=== PATIENT | male | born 1975 | race Caucasian/White ===

== ENCOUNTER → 2023-01-25 06:57 | Outpatient (CLI) | payer OTHER, SELFPAY ==
--- NOTE | 2023-01-25 | DI.ECHO.S_ITS ---
[facility] +---------+ : : [id number] : : : : [id number] : : : : Phone: [phone]+ Echocardiogram Report + + :Name: LISSY GARCIA Study Date: 01/25/2023 Height: 71 in : :[facility] ReadingLocation: Weight: 300 lb : : Gender: Male BSA: 2.5 m2 : :: 1975 Age: 47 yrs BP: 145/98 mmHg: :Reason For Study: Fluid Overload : :Ordering Physician: Naima, : :Argelia Performed By: Marlee Lo : :Referring: ARGELIA CINTRON W : + + Interpretation Summary Technically difficult study. Grossly normal left ventricle size with ejection fraction 55-60%. Diastolic parameters suggest a relaxation abnormality of the left ventricle, consistent with probable normal filling pressures. Mildly dilated right ventricle with normal right ventricular systolic function. No obvious valvular abnormality. Procedure: A two-dimensional transthoracic echocardiogram with color flow and Doppler was performed. The study quality was technically difficult. There is no prior echocardiogram noted for this patient. Attempted to use Definity but the nurse was unable to obtain IV access. The patient was in normal sinus rhythm during the exam. Left Ventricle: The left ventricle is grossly normal size. The ejection fraction is estimated to be 55-60%. There are no obvious focal wall motion abnormalities noted but poor endocardial definition reduces the sensitivity for the detection of such. Diastolic parameters suggest a relaxation abnormality of the left ventricle, consistent with probable normal filling pressures. Right Ventricle: The right ventricle is mildly dilated. The right ventricular systolic function is normal. Atria: The left atrial size is normal. Right atrial size is normal. There is no Doppler evidence for an interatrial shunt. Mitral Valve: The mitral valve is normal. There is no mitral valve stenosis. There is trace mitral regurgitation. Aortic Valve: The aortic valve is trileaflet. The aortic valve opens well. There is no aortic valve stenosis. No aortic regurgitation is present. Tricuspid Valve: The tricuspid valve is normal. There is no tricuspid stenosis. There is trace tricuspid regurgitation. Pulmonary artery pressures cannot be estimated because of the lack of a measurable TR jet velocity. Pulmonic Valve: The pulmonic valve leaflets are thin and pliable; valve motion is normal. There is no pulmonic valvular stenosis. There is trace pulmonic regurgitation. Great Vessels: The aortic root is normal size. The ascending aorta is normal in size. The pulmonary artery is normal size. The IVC is dilated (diameter is greater than 2.1 cm) yet it collapses greater than 50% with a sniff. This suggests a right atrial pressure of 8 mm Hg. Pericardium/ Pleura There is no pericardial effusion. There is no pleural effusion. MMode/2D Measurements & Calculations LVIDd: 5.8 cm LVOT diam: 2.4 cm LVIDs: 4.7 cm Ao root diam: 3.6 cm FS: 19.0 % asc Aorta Diam: 3.5 cm IVSd: 1.2 cm LVPWd: 1.4 cm LV blanca. diameter/BSA (cm/m^2): 2.3 LV sys. diameter/BSA (cm/m^2): 1.9 LA A2 area: 20.3 cm2 RA long axis: 5.6 cm LA A4 area: 18.0 cm2 RA area: 19.6 cm2 LA length (vol): 5.8 cm RA vol: 58.4 ml LA vol: 53.5 ml RA : 23.3 ml/m2 LA vol index: 21.3 ml/m2 RVD1 (basal): 4.5 cm TAPSE_phl: 2.4 cm Doppler Measurements & Calculations Ao V2 max: 144.0 cm/sec LVOT Max Louie: 89.1 cm/sec Ao V2 mean: 100.6 cm/sec LV V1 max P.2 mmHg Ao max P.0 mmHg LV V1 VTI: 19.1 cm Ao mean P.5 mmHg BRODIE(I,D): 2.7 cm2 Ao V2 VTI: 32.4 cm BRODIE(V,D): 2.8 cm2 sev ratio: 0.59 BRODIE indexed to BSA (cm^2/m^2): 1.1 MV E max louie: 108.0 cm/sec PA V2 max: 86.7 cm/sec MV A max louie: 99.0 cm/sec PA V2 mean: 59.8 cm/sec MV E/A: 1.1 PA mean P.0 mmHg Med Peak E' Louie: 6.6 cm/sec PA pr(Accel): 23.2 mmHg E/E' med: 16.4 Lat Peak E' Louie: 6.5 cm/sec E/E' lat: 16.7 E/e' average: 16.5 MV dec time: 0.22 sec MVA(VTI): 2.5 cm2 MV V2 mean: 88.2 cm/sec SV(LVOT): 86.6 ml MV mean P.5 mmHg MV V2 VTI: 34.9 cm AV VR_phl: 0.62 MV P1/2t-pr_phl: 65.0 msec BRODIE(VTI)/BSA_phl: 1.1 Electronically signed by: Zach Mijares on Reading Physician:01/25/2023 03:04 PM
== END ==
PROVIDERS: PCP Family Medicine; Referring Provider Family Medicine; Visit Provider Family Medicine
DX: E87.70 Fluid overload, unspecified (principal)
CPT/HCPCS: 93306

== ENCOUNTER 2024-04-03 13:10 | Emergency (ER) | payer MEDICARE, SELFPAY ==
[2024-04-03 13:15] VITALS: BP 131/71; PULSE 82; O2SAT 96
[2024-04-03 13:18] VITALS: BP 131/71; PULSE 82; RESP 18; TEMP 36.2; O2SAT 95; BMI 47.8
[2024-04-03 13:30] VITALS: PULSE 75; O2SAT 95
--- NOTE | 2024-04-03 13:32 | ED.GENADULT ---
HPI - General Adult General Chief complaint: Weakness Stated complaint: weak, dizzy, muscle aches Time Seen by Provider: 04/03/24 13:17 Source: patient and family Mode of arrival: Wheelchair History of Present Illness HPI narrative: 40-year-old male. Has a insulin-dependent diabetic. Is on Ozempic for his diabetes is here for evaluation of a couple days of feeling weak, dizzy muscle aches and generally not feeling very well. He recently was off his Ozempic for several weeks because he was unable to afford the medication. He recently started back on the highest dose of this medication. He states when he was off he was in pick his blood sugars were in the 92280 range. They are now down into the less than 200 range. No chest pain, shortness of breath, abdominal pain. Related Data Home Medications Medication Instructions Recorded Confirmed atorvastatin 20 mg tablet 20 mg PO DAILY 01/21/24 01/21/24 cholecalciferol (vitamin D3) 1,250 1,250 mcg PO QWEEK 01/21/24 01/21/24 mcg (50,000 unit) capsule duloxetine 20 mg capsule,delayed 20 mg PO BID 01/21/24 01/21/24 release empagliflozin 25 mg tablet 25 mg PO DAILY 01/21/24 01/21/24 (Jardiance) gabapentin 800 mg tablet 800 mg PO TID 01/21/24 01/21/24 hydrocodone 10 mg-acetaminophen 1 tab PO Q8H PRN 01/21/24 01/21/24 325 mg tablet insulin glargine 100 unit/mL 30 unit SUBCUT BID 01/21/24 01/21/24 subcutaneous cartridge levothyroxine 25 mcg tablet 25 mcg PO DAILY 01/21/24 01/21/24 omeprazole 20 mg tablet,delayed 20 mg PO BID 01/21/24 01/21/24 release semaglutide 2 mg/dose (8 mg/3 mL) 2 mg SUBCUT QWEEK 01/21/24 01/21/24 subcutaneous pen injector (Ozempic) torsemide 100 mg tablet 100 mg PO DAILY 01/21/24 01/21/24 Allergies Allergy/AdvReac Type Severity Reaction Status Date / Time cefazolin Allergy Unknown Verified 01/21/24 10:49 Cephalosporins Allergy Unknown Verified 01/21/24 10:49 magnesium sulfate Allergy Unknown Verified 01/21/24 10:49 morphine Allergy Unknown Verified 01/21/24 10:49 nafcillin Allergy Unknown Verified 01/21/24 10:49 oxcarbazepine Allergy Unknown Verified 01/21/24 10:49 pregabalin [From Lyrica] Allergy Unknown Verified 01/21/24 10:49 rifampin Allergy Unknown Verified 01/21/24 10:49 yellow dye Allergy Unknown Verified 01/21/24 10:49 Review of Systems Review of Systems Narrative: See HPI Patient History Medical History Erectile dysfunction Tobacco use Nocturia more than twice per night Lower urinary tract symptoms Hx of chronic kidney disease Hx of peripheral neuropathy Hx of thyroid disease Hx of kidney disease Hx of gastroesophageal reflux (GERD) Hx of diabetes mellitus Hx of testicular cancer Surgical History (Updated 11/24/22 @ 13:06 by John Bryant MD) History of orchiectomy History of right below knee amputation Family History (Updated 11/02/22 @ 15:59 by Ruth Ovalle RN) Mother Diabetes mellitus Eczema Congestive heart failure Thyroid disorder COPD (chronic obstructive pulmonary disease) Father Diabetes mellitus Social History marital status: number of children: 1 occupational status: disabled Smoking Status: Current every day smoker alcohol intake: never caffeine: Yes Type(s) of exercise: none Smoking Status: Current every day smoker tobacco type: cigarettes Substance Use Type: does not use Exam Initial Vital Signs Initial Vital Signs: Vital Signs Temperature 97.1 F L 04/03/24 13:18 Pulse Rate 82 04/03/24 13:18 Respiratory Rate 18 04/03/24 13:18 Blood Pressure 131/71 04/03/24 13:18 Pulse Oximetry 95 04/03/24 13:18 Oxygen Delivery Method Room Air 04/03/24 13:18 Const General: cooperative and comfortable Resp Effort & Inspection: normal respiratory effort Auscultation: clear to auscultation bilaterally Cardio Rate: regular rate Rhythm: regular rhythm GI Inspection: normal to inspection and non-distended Skin Other: Chronic venous stasis changes left lower extremity Neuro General: patient alert, patient awake and moves all extremities Extrem Other: Right [id number] amputation Course Orders Ordered: ED Orders 04/03/24 13:27 Basic Metabolic Panel Stat Complete Blood Count AUTO DIFF Stat Covid-19 + FLU A/B + RSV - PCR Stat 04/03/24 15:02 Creatinine Urine Random Stat Sodium Urine Random Stat Urinalysis and Microscopic Stat 04/03/24 16:22 BMP [Basic Metabolic Panel] Stat Discontinued Medications Sodium Chloride (Normal Saline 0.9%) 1,000 mls @ 1,000 mls/hr IV BOLUS ONE Stop: 04/03/24 15:30 Last Infusion: 04/03/24 16:24 Dose: Infused Documented By: Admin: 04/03/24 15:08 Dose: 1,000 mls/hr Documented By: VANESSA Vital Signs Vital signs: Vital Signs - 8 hr 04/03/24 13:18 Temperature 97.1 F L Pulse Rate 82 Respiratory Rate 18 Blood Pressure 131/71 Pulse Oximetry 95 Oxygen Delivery Method Room Air Medical Decision Making Lab Data Lab results reviewed: Yes I reviewed the patient's lab results. 04/03/24 13:27 04/03/24 16:22 Labs: Lab Results 04/03/24 04/03/24 04/03/24 Range/Units 13:27 15:02 16:22 WBC 10.9 (4.5-11.0) X10^3/uL RBC 3.99 L (4.5-5.9) X10^6/uL Hgb 12.6 L (13.5-17.5) g/dL Hct 37.5 L (41-53) % MCV 93.9 (80-100) fL MCH 31.6 (26-34) PG MCHC 33.7 (30-36) % RDW 13.4 (11.6-14.8) % Plt Count 271 (150-400) X10^3/uL Neut % (Auto) 74.1 (50-75) % Lymph % (Auto) 13.3 L (25-40) % [place] % (Auto) 10.7 (3-14) % Eos % (Auto) 1.5 L (2-4) % Baso % (Auto) 0.4 (0-2) % Neut # (Auto) 8100 H (2118-1256) /uL Lymph # (Auto) 1400 (7345-8186) /uL [place] # (Auto) 1200 H (0-900) /uL Eos # (Auto) 200 (0-450) /uL Baso # (Auto) 0 (0-100) /uL Sodium 130 L 128 L (137-145) mmol/L Potassium 3.6 3.0 L (3.4-5.1) mmol/L Chloride 79 L 80 L (98-107) mmol/L Carbon Dioxide 36 H 37 H (22-32) mmol/L BUN 126 H* 121 H* (9-20) mg/dL Creatinine 3.01 H 2.82 H (0.66-1.25) mg/dL Estimated GFR 25 L 27 L (>60) mL/min BUN/Creatinine Ratio 41.9 H 42.6 H (6-22) Glucose 172 H 240 H (70-100) mg/dL Calcium 7.3 L 7.0 L (8.4-10.2) mg/dL Urine Color Yellow Urine Appearance Clear Urine pH 6.0 (4.5-8.0) Ur Specific [place] 1.010 (1.000-1.035) Urine Protein 2+ H (Negative) Urine Glucose (UA) 2+ H (Negative) g/dL Urine Ketones Negative (NEGATIVE) Urine Occult Blood Negative (Negative) Urine Nitrate Negative (Negative) Urine Bilirubin Negative (NEGATIVE) Urine Urobilinogen 0.2 (0.2) E.U./dL Ur Leukocyte Esterase Negative (NEGATIVE) Urine RBC 0-1/hpf (0-5/HPF) Urine WBC 0-1/hpf (0-5/HPF) Ur Squamous Epith Cells 0-1 /hpf (0-5/HPF) Urine Bacteria Occasional (0-1) (None) Ur Culture Indicated? Cult not indicated Vol Urine Centrifuged 10ml (spun) Ur Random Sodium 50 (30-90) mmol/L Urine Creatinine 43.93 mg/dL SARS-CoV-2 (PCR) Negative (Negative) Influenza A (RT-PCR) Flu a negative (NEGATIVE) Influenza B (RT-PCR) Flu b negative (NEGATIVE) RSV (PCR) Negative (Negative) MDM Narrative Medical decision making narrative: After fluids patient reports an improvement of his symptoms. He is tolerating oral intake. He initially had an increase in his creatinine with no prior. His FENA calculates out to an intrinsic process. He stated that several months ago his creatinine was 2.7. 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 After fluids his creatinine did improve. He was feeling better. Plan will be to discharge home. He will take a lower dose of his Ozempic and increase it like what he did when he 1st started the medication. He was given return precautions. He expressed understanding and agreement. I suspect that he does have a degree of dehydration as well as he has been urinating quite a bit most likely because his blood sugars have been elevated. Discharge Plan Departure Patient Disposition: Home Clinical Impression: Chronic kidney disease, Dehydration Instructions: DI for Dehydration -- Adult Activity Restrictions/Additional Instructions: Recommend that you continue to take all of your medications as directed. It is important that you contact your primary doctor for a follow-up. I would recommend decreasing your Ozempic for the next couple days and then increasing it back up to your current dose. You can contact your primary doctor for more information on this. Return to the emergency department for new symptoms. Prescriptions: No Action atorvastatin 20 mg tablet 20 mg PO DAILY gabapentin 800 mg tablet 800 mg PO TID Patient Comments: Pt takes 3600mg daily torsemide 100 mg tablet 100 mg PO DAILY Jardiance 25 mg tablet 25 mg PO DAILY Ozempic 2 mg/dose (8 mg/3 mL) pen injector 2 mg SUBCUT QWEEK cholecalciferol (vitamin D3) 1,250 mcg (50,000 unit) capsule 1,250 mcg PO QWEEK hydrocodone-acetaminophen 10-325 mg tablet 1 tab PO Q8H PRN duloxetine 20 mg capsule,delayed release(DR/EC) 20 mg PO BID levothyroxine 25 mcg tablet 25 mcg PO DAILY omeprazole 20 mg tablet,delayed release (DR/EC) 20 mg PO BID insulin glargine 100 unit/mL cartridge 30 unit SUBCUT BID Referrals: Augustin Mcnamara MD [Primary Care Provider] - Stand Alone Forms: Patient Portal/API
[2024-04-03 13:50] LABS: Add Manual Diff / Slide Review NO; Basophils Absolute Auto 0 /uL (0-100); Basophils Percent Auto 0.4 % (0-2); Eosinophils Absolute Auto 200 /uL (0-450); Eosinophils Percent Auto 1.5 % (2-4); Hematocrit 37.5 % (41-53); Hemoglobin 12.6 g/dL (13.5-17.5); Lymphocytes Absolute Auto 1400 /uL (1100-4500); Lymphocytes Percent Auto 13.3 % (25-40); Mean Corpuscular HGB Conc 33.7 % (30-36); Mean Corpuscular Hemoglobin 31.6 PG (26-34); Mean Corpuscular Volume 93.9 fL (80-100); Monocytes Absolute Auto 1200 /uL (0-900); Monocytes Percent Auto 10.7 % (3-14); Neutrophils Absolute Auto 8100 /uL (1500-7000); Neutrophils Percent Auto 74.1 % (50-75); Platelet Count 271 X10^3/uL (150-400); Red Blood Cell Count 3.99 X10^6/uL (4.5-5.9); Red Cell Distribution Width 13.4 % (11.6-14.8); White Blood Cell Count 10.9 X10^3/uL (4.5-11.0)
[2024-04-03 13:55] LABS: Calcium 7.3 mg/dL (8.4-10.2); Carbon Dioxide 36 mmol/L (22-32); Chloride 79 mmol/L (98-107); Estimated Glomerular Filt Rate 25 mL/min (>60); Glucose 172 mg/dL (70-100); HEMOLYSIS < 15 (0-50); Potassium 3.6 mmol/L (3.4-5.1); Sodium 130 mmol/L (137-145)
[2024-04-03 14:00] VITALS: PULSE 72; O2SAT 93
[2024-04-03 14:09] LABS: BUN Creatinine Ratio 41.9 (6-22)
[2024-04-03 14:10] LABS: Blood Urea Nitrogen 126 mg/dL (9-20)
[2024-04-03 14:15] LABS: COVID-19 CEPHEID 4-PLEX PCR Negative (Negative); Influenza A - CEPHEID Flu A NEGATIVE (NEGATIVE); Influenza B - CEPHEID Flu B NEGATIVE (NEGATIVE); Respiratory Syncytial Virus Negative (Negative)
[2024-04-03 14:30] VITALS: PULSE 72; O2SAT 91
[2024-04-03] MEDS: SODIUM CHLORIDE 0.9% 1,000 ML 1000 ML IV (15:08)
[2024-04-03 15:10] LABS: Appearance Urine UA CLEAR; Bilirubin Urine UA NEGATIVE (NEGATIVE); Color Urine UA YELLOW; Glucose Urine UA 2+ g/dL (Negative); Ketones Urine UA NEGATIVE (NEGATIVE); Leukocyte Esterase Urine UA NEGATIVE (NEGATIVE); Nitrite Urine UA NEGATIVE (Negative); Occult Blood Urine UA NEGATIVE (Negative); Protein Urine UA 2+ (Negative); Urobilinogen Urine UA 0.2 E.U./dL (0.2)
[2024-04-03 15:16] LABS: Bacteria Urine Occasional (0-1); Culture Indicated Urine Cult Not Indicated; RBC Urine 0-1/HPF (0-5/HPF); Squamous Epithelial Cell Urine 0-1 /HPF (0-5/HPF); Urine Volume 10mL (spun); WBC Urine 0-1/HPF (0-5/HPF)
[2024-04-03 15:35] LABS: Creatinine Urine Random 43.93 mg/dL; Sodium Urine Random 50 mmol/L (30-90)
[2024-04-03 16:38] LABS: Carbon Dioxide 37 mmol/L (22-32); Chloride 80 mmol/L (98-107); Estimated Glomerular Filt Rate 27 mL/min (>60); Glucose 240 mg/dL (70-100); HEMOLYSIS < 15 (0-50); Sodium 128 mmol/L (137-145)
[2024-04-03 16:39] LABS: BUN Creatinine Ratio 42.6 (6-22)
[2024-04-03 16:52] LABS: Blood Urea Nitrogen 121 mg/dL (9-20)
[2024-04-03 17:14] VITALS: BP 159/96; PULSE 72; RESP 16; O2SAT 94
== END 2024-04-03 17:19 | disposition home or self-care (01) ==
PROVIDERS: Emergency Provider Emergency Medicine; PCP Family Medicine
DX: E11.22 Type 2 diabetes mellitus with diabetic chronic kidney disease (principal); N18.9 Chronic kidney disease, unspecified; E86.0 Dehydration; Z79.85 Long-term (current) use of injectable non-insulin antidiabetic drugs; Z79.4 Long term (current) use of insulin
CPT/HCPCS: 0241U; 36415; 80048; 81001; 82570; 84300; 85025; 96360; 99284

== ENCOUNTER → 2024-05-22 07:59 | Outpatient (CLI) | payer MEDICARE, SELFPAY ==
--- NOTE | 2024-05-22 08:00 | DI.RAD.S_ITS ---
PROCEDURE: XR CHEST 2V INDICATIONS: Cough TECHNIQUE: 2 views of the chest were acquired. COMPARISON: None. FINDINGS: Surgical changes and devices: None. Lungs and pleura: Lungs are clear. No pleural effusions or pneumothorax. Mediastinum: Mediastinal contours are normal. Heart size is normal. Bones and chest wall: No suspicious bony abnormalities. Soft tissues appear unremarkable. IMPRESSION: No acute cardiothoracic process. Dictated by: Mohamud Hamm M.D. on 05/22/2024 at 13:08 Approved by: Mohamud Hamm M.D. on 05/22/2024 at 13:08
== END ==
PROVIDERS: PCP Family Medicine; Referring Provider Nurse Practitioner Family; Visit Provider Nurse Practitioner Family
DX: R05.9 Cough, unspecified (principal)
CPT/HCPCS: 71046

== ENCOUNTER 2024-05-23 14:02 | Emergency (ER) | payer MEDICARE, SELFPAY ==
[2024-05-23] VITALS (14 sets, daily range): BP systolic 102–161; BP diastolic 64–87; PULSE 79–86; RESP 16–21; TEMP 37.2; O2SAT 90–98; BMI 44.4
--- NOTE | 2024-05-23 14:29 | DI.RAD.S_ITS ---
PROCEDURE: XR CHEST 1V INDICATIONS: Shortness of breath TECHNIQUE: One view of the chest was acquired. COMPARISON: [facility], CR, XR CHEST 2V, 05/22/2024, 8:02. FINDINGS: Surgical changes and devices: None. Lungs and pleura: Lungs are clear. No pleural effusions or pneumothorax. Mediastinum: Mediastinal contours appear normal. Heart size is normal. Bones and chest wall: No suspicious bony lesions. Overlying soft tissues appear unremarkable. IMPRESSION: No acute cardiopulmonary pathology. Dictated by: Errol Quiles M.D. on 05/23/2024 at 15:28 Approved by: Errol Quiles M.D. on 05/23/2024 at 15:28
[2024-05-23 14:48] LABS: Add Manual Diff / Slide Review NO; Basophils Absolute Auto 100 /uL (0-100); Basophils Percent Auto 0.7 % (0-2); Eosinophils Absolute Auto 200 /uL (0-450); Eosinophils Percent Auto 2.2 % (2-4); Hematocrit 35.3 % (41-53); Hemoglobin 11.8 g/dL (13.5-17.5); Lymphocytes Absolute Auto 900 /uL (1100-4500); Lymphocytes Percent Auto 8.6 % (25-40); Mean Corpuscular HGB Conc 33.6 % (30-36); Mean Corpuscular Hemoglobin 30.6 PG (26-34); Mean Corpuscular Volume 91.1 fL (80-100); Monocytes Absolute Auto 700 /uL (0-900); Monocytes Percent Auto 7.4 % (3-14); Neutrophils Absolute Auto 8100 /uL (1500-7000); Neutrophils Percent Auto 81.1 % (50-75); Platelet Count 298 X10^3/uL (150-400); Red Blood Cell Count 3.88 X10^6/uL (4.5-5.9); Red Cell Distribution Width 13.8 % (11.6-14.8)
--- NOTE | 2024-05-23 14:50 | EKG_ITS ---
[address] [address] Test Date: 2024-05-23 Pat Name: Lucas Alejandro Department: [facility] Room: Gender: Male [employer]ap Project Manager: ROMERO : 1975 Requested By: Order Number: [id number] Reading MD: Jarocho Wall Measurements Intervals [place] Rate: 83 P: 50 MO: 168 QRS: -16 QRSD: 152 T: 63 QT: 452 QTc: 531 Interpretive Statements Normal sinus rhythm with sinus arrhythmia Right bundle branch block Electronically Signed On 05-24-2024 11:24:31 PDT by Jarocho Wall
[2024-05-23 15:02] LABS: Alanine Aminotransferase 22 IU/L (<50); Albumin 3.9 g/dL (3.5-5.0); Albumin Globulin Ratio 1.1 (1.0-2.8); Alkaline Phosphatase 49 U/L (38-126); Aspartate Aminotransferase 47 IU/L (17-59); BUN Creatinine Ratio 36.4 (6-22); Bilirubin Total 0.7 mg/dL (0.2-1.3); Blood Urea Nitrogen 96 mg/dL (9-20); Calcium 7.3 mg/dL (8.4-10.2); Carbon Dioxide 29 mmol/L (22-32); Chloride 90 mmol/L (98-107); Estimated Glomerular Filt Rate 29 mL/min (>60); Globulin 3.7 g/dL (1.7-4.1); Glucose 196 mg/dL (70-100); Sodium 131 mmol/L (137-145); Total Protein 7.6 g/dL (6.3-8.2)
[2024-05-23 15:03] LABS: Lactate (Lactic Acid) 1.8 mmol/L (0.7-2.1)
[2024-05-23 15:04] LABS: HEMOLYSIS 134 (0-50)
[2024-05-23] MEDS: ALBUTEROL 2.5 MG/3 ML NEB (ADULT) INH (15:09)
[2024-05-23 15:13] LABS: INR 1.1 (0.9-1.3); NT-proBNP (BNP-Adult 18+) 1770 pg/mL (<125); Prothrombin Time 12.3 SECONDS (9.4-12.5); Troponin I 0.031 ng/mL (0.01-0.034)
--- NOTE | 2024-05-23 15:49 | ED.SOB ---
HPI - SOB/Dyspnea General Chief Complaint: Shortness of Breath/Dyspnea Stated Complaint: trouble breathing Time Seen by Provider: 05/23/24 15:37 Source: patient, family, RN notes reviewed and old records reviewed Mode of arrival: Family Vehicle Limitations: no limitations History of Present Illness HPI Narrative: 48-year-old male history of insulin-dependent diabetes, also on Ozempic, history of chronic kidney disease, hypothyroidism, dyslipidemia, LORNA although nonadherent with CPAP. Patient presents with complaint of 3 weeks of cough and shortness of breath with yellow productive sputum for past 3 days has significantly worsened with increasing shortness of breath. Denies any chest pain or pressure. Had some nausea and vomiting week ago but no persistent. No issues with bowel movements or urination, has chronic edema in his lower extremities but no rapid worsening. Notes some redness and rash around his umbilicus but not significantly worsening and has been there for weeks to months. Denies any fevers or chills. Patient states symptoms have rapidly worse in the last 2 or 3 days. Did go to walk-in clinic yesterday had a chest x-ray. Related Data Home Medications Medication Instructions Recorded Confirmed atorvastatin 20 mg tablet 20 mg PO DAILY 01/21/24 05/22/24 cholecalciferol (vitamin D3) 1,250 1,250 mcg PO QWEEK 01/21/24 05/22/24 mcg (50,000 unit) capsule duloxetine 20 mg capsule,delayed 20 mg PO BID 01/21/24 05/22/24 release hydrocodone 10 mg-acetaminophen 1 tab PO Q8H PRN 01/21/24 05/22/24 325 mg tablet insulin glargine 100 unit/mL 30 unit SUBCUT BID 01/21/24 05/22/24 subcutaneous cartridge levothyroxine 25 mcg tablet 25 mcg PO DAILY 01/21/24 05/22/24 omeprazole 20 mg tablet,delayed 20 mg PO BID 01/21/24 05/22/24 release semaglutide 2 mg/dose (8 mg/3 mL) 2 mg SUBCUT QWEEK 01/21/24 05/22/24 subcutaneous pen injector (Ozempic) torsemide 100 mg tablet 100 mg PO DAILY 01/21/24 05/22/24 gabapentin 800 mg tablet 600 mg PO TID 05/22/24 05/22/24 Previous Rx's Medication Instructions Recorded benzonatate 200 mg capsule 200 mg PO BID PRN cough #28 caps 05/22/24 torsemide 20 mg tablet 20 mg PO DAILY #5 tabs 05/23/24 Allergies Allergy/AdvReac Type Severity Reaction Status Date / Time cefazolin Allergy Unknown Verified 05/22/24 07:33 Cephalosporins Allergy Unknown Verified 05/22/24 07:33 magnesium sulfate Allergy Unknown Verified 05/22/24 07:33 morphine Allergy Unknown Verified 05/22/24 07:33 nafcillin Allergy Unknown Verified 05/22/24 07:33 oxcarbazepine Allergy Unknown Verified 05/22/24 07:33 pregabalin [From Lyrica] Allergy Unknown Verified 05/22/24 07:33 rifampin Allergy Unknown Verified 05/22/24 07:33 yellow dye Allergy Unknown Verified 05/22/24 07:33 Review of Systems Review of Systems ROS Unobtainable: All systems reviewed & are unremarkable except as noted in HPI and below Patient History Medical History Erectile dysfunction Tobacco use Nocturia more than twice per night Lower urinary tract symptoms Hx of chronic kidney disease Hx of peripheral neuropathy Hx of thyroid disease Hx of kidney disease Hx of gastroesophageal reflux (GERD) Hx of diabetes mellitus Hx of testicular cancer Surgical History History of orchiectomy History of right below knee amputation Family History Mother Diabetes mellitus Eczema Congestive heart failure Thyroid disorder COPD (chronic obstructive pulmonary disease) Father Diabetes mellitus Social History marital status: number of children: 1 occupational status: disabled Smoking Status: Current every day smoker alcohol intake: never caffeine: Yes Type(s) of exercise: none Smoking Status: Current every day smoker tobacco type: cigarettes Substance Use Type: does not use Exam Narrative Exam Narrative: GEN: Obese male, alert and oriented x 3, patient appears to be in mild distress. HEENT: Atraumatic, pupils are equal round reactive to light, extraocular movements are intact, nares are clear, there is no conjunctival pallor. Throat is clear without any exudates, erythema, tonsillar enlargement or uvular deviation HEART: Regular rate and rhythm without murmur, clicks, rubs. Patient has bilateral lower extremity edema, patient does have chronic venous stasis changes with hyperpigmentation hyperkeratotic skin. LUNGS:Lungs clear to auscultation, no wheezes, rales, crackles, chest moves symmetrically, tachypnea accessory muscle use. Patient's speaks in full sentences. ABD:bowel sounds normal, soft, non-tender, no guarding, rebound, rigidity, no masses noted, no hepatosplenomegaly, patient has some erythema and hyperkeratotic skin around and just below the umbilicus. There is no warmth. There is no drainage or fluid collection. The area is nontender to touch. :No CVA tenderness MSCL: Non-tender, no muscle atrophy, full range of motion. Patient does have right BKA. NEURO:CN 2-12 intact, sensation normal. Initial Vital Signs Initial Vital Signs: Vital Signs Temperature 98.9 F 05/23/24 14:23 Pulse Rate 80 05/23/24 14:23 Respiratory Rate 20 05/23/24 14:23 Blood Pressure 122/87 05/23/24 14:23 Pulse Oximetry 94 05/23/24 14:23 Oxygen Delivery Method Room Air 05/23/24 14:23 Course Orders Ordered: ED Orders 05/23/24 14:29 XR chest 1V Stat EKG-12 Lead Stat Measure peak expiratory flow ONCE RT Consult Eval and Treat NOW 05/23/24 14:42 Complete Blood Count AUTO DIFF Stat Comprehensive Metabolic Panel Stat Lactate (Lactic Acid) Stat NT-proBNP (BNP-Adult 18+) Stat Prothrombin Time INR Stat Troponin I Stat 05/23/24 15:48 Respiratory Panel (Film Array) Stat Discontinued Medications Albuterol (Albuterol 2.5 Mg/3 Ml Neb (Adult)) 2.5 mg INH NOW ONE Stop: 05/23/24 15:07 Last Admin: 05/23/24 15:09 Dose: 2.5 mg Documented By: KATHLEEN Furosemide 80 mg/ Sodium (Chloride) 58 mls @ 116 mls/hr IV NOW ONE Stop: 05/23/24 15:50 Last Infusion: 05/23/24 16:51 Dose: Infused Documented By: Admin: 05/23/24 16:05 Dose: 116 mls/hr Documented By: JARRETT Vital Signs Vital signs: Vital Signs - 8 hr 05/23/24 14:23 05/23/24 14:33 05/23/24 14:45 Temperature 98.9 F Pulse Rate 80 85 86 Respiratory Rate 20 Blood Pressure 122/87 Pulse Oximetry 94 90 L 91 Oxygen Delivery Method Room Air Oxygen Flow Rate 05/23/24 14:45 05/23/24 14:52 05/23/24 14:52 Temperature Pulse Rate 81 Respiratory Rate Blood Pressure 121/66 122/70 Pulse Oximetry 91 Oxygen Delivery Method Oxygen Flow Rate 05/23/24 15:00 05/23/24 15:00 05/23/24 15:11 Temperature Pulse Rate 80 Respiratory Rate 21 Blood Pressure 102/64 Pulse Oximetry 94 91 Oxygen Delivery Method Nasal Cannula Room Air Oxygen Flow Rate 2 05/23/24 15:30 05/23/24 15:30 05/23/24 16:00 Temperature Pulse Rate 80 Respiratory Rate 16 Blood Pressure 140/77 136/83 Pulse Oximetry 94 Oxygen Delivery Method Oxygen Flow Rate 05/23/24 16:00 05/23/24 16:30 05/23/24 16:31 Temperature Pulse Rate 80 86 83 Respiratory Rate 19 19 19 Blood Pressure Pulse Oximetry 96 96 97 Oxygen Delivery Method Oxygen Flow Rate 05/23/24 16:31 05/23/24 16:44 05/23/24 16:44 Temperature Pulse Rate 84 Respiratory Rate Blood Pressure 115/70 122/76 Pulse Oximetry 98 Oxygen Delivery Method Oxygen Flow Rate 05/23/24 17:00 05/23/24 17:00 05/23/24 17:30 Temperature Pulse Rate 79 79 Respiratory Rate 18 18 Blood Pressure 119/71 Pulse Oximetry 91 96 Oxygen Delivery Method Oxygen Flow Rate 05/23/24 17:30 05/23/24 18:07 Temperature Pulse Rate 81 Respiratory Rate Blood Pressure 161/81 H Pulse Oximetry Oxygen Delivery Method Oxygen Flow Rate MDM - SOB/Dyspnea Lab Data 05/23/24 14:42 05/23/24 14:42 Labs: Lab Results 05/23/24 05/23/24 Range/Units 14:42 15:48 WBC 10.0 (4.5-11.0) X10^3/uL RBC 3.88 L (4.5-5.9) X10^6/uL Hgb 11.8 L (13.5-17.5) g/dL Hct 35.3 L (41-53) % MCV 91.1 (80-100) fL MCH 30.6 (26-34) PG MCHC 33.6 (30-36) % RDW 13.8 (11.6-14.8) % Plt Count 298 (150-400) X10^3/uL Neut % (Auto) 81.1 H (50-75) % Lymph % (Auto) 8.6 L (25-40) % [place] % (Auto) 7.4 (3-14) % Eos % (Auto) 2.2 (2-4) % Baso % (Auto) 0.7 (0-2) % Neut # (Auto) 8100 H (8443-9338) /uL Lymph # (Auto) 900 L (6901-1692) /uL [place] # (Auto) 700 (0-900) /uL Eos # (Auto) 200 (0-450) /uL Baso # (Auto) 100 (0-100) /uL PT 12.3 (9.4-12.5) SECONDS INR 1.1 (0.9-1.3) Sodium 131 L (137-145) mmol/L Potassium 4.0 (3.4-5.1) mmol/L Chloride 90 L (98-107) mmol/L Carbon Dioxide 29 (22-32) mmol/L BUN 96 H (9-20) mg/dL Creatinine 2.64 H (0.66-1.25) mg/dL Estimated GFR 29 L (>60) mL/min BUN/Creatinine Ratio 36.4 H (6-22) Glucose 196 H (70-100) mg/dL Lactate 1.8 (0.7-2.1) mmol/L Calcium 7.3 L (8.4-10.2) mg/dL Total Bilirubin 0.7 (0.2-1.3) mg/dL AST 47 (17-59) IU/L ALT 22 (<50) IU/L Alkaline Phosphatase 49 (38-126) U/L Troponin I 0.031 (0.01-0.034) ng/mL NT-Pro-B Natriuret Pep 1770 H (<125) pg/mL Total Protein 7.6 (6.3-8.2) g/dL Albumin 3.9 (3.5-5.0) g/dL Globulin 3.7 (1.7-4.1) g/dL Albumin/Globulin Ratio 1.1 (1.0-2.8) Chlamy pneumoniae PCR Not detected (Not Detect) Adenovirus (PCR) Not detected (Not Detect) B. pertussis DNA (PCR) Not detected (Not Detect) B.parapertussis DNA PCR Not detected (Not Detecte) Coronavirus OC43 (PCR) Not detected (Not Detect) Coronavirus HKU1 (PCR) Not detected (Not Detect) Coronavirus 229E (PCR) Not detected (Not Detect) SARS-CoV-2 (PCR) Not detected (Not Detecte) Coronavirus NL63 (PCR) Not detected (Not Detect) Human Metapneumovir PCR Not detected (Not Detect) Influenza Type A (PCR) Not detected (Not Detect) Influenza Type B (PCR) Not detected (Not Detect) M. pneumoniae (PCR) Not detected (Not Detect) Parainfluenza 1 (PCR) Not detected (Not Detect) Parainfluenza 2 (PCR) Not detected (Not Detect) Parainfluenza 3 (PCR) Not detected (Not Detect) Parainfluenza 4 (PCR) Not detected (Not Detect) RSV (PCR) Not detected (Not Detect) Entero/Rhino (PCR) Not detected (Not Detect) Imaging Data Chest x-ray: Radiologist's Impression: tanner, rifampin, yellow dye (More??) Close Chest X-Ray (Signed) Errol Quiles - 05/23/24 Chest X-Ray (Signed) Mohamud Hamm - 05/22/24 Echocardiogram Ultrasound (Signed) Zach Graf - 01/25/23 Launch?Image [address] [address] XRay Report Signed Patient: Lucas Alejandro MR#: [id number] : 1975 Acct:[id number] Age/Sex: 48 / M Date of Service: 05/23/24 Loc: ED Accession Number: [id number] Procedure: XR chest 1V Ordering Provider: Evelina Campbell D.O. PROCEDURE: XR CHEST 1V INDICATIONS: Shortness of breath TECHNIQUE: One view of the chest was acquired. COMPARISON: [facility], [place], XR CHEST 2V, 05/22/2024, 8:02. FINDINGS: Surgical changes and devices: None. Lungs and pleura: Lungs are clear. No pleural effusions or pneumothorax. Mediastinum: Mediastinal contours appear normal. Heart size is normal. Bones and chest wall: No suspicious bony lesions. Overlying soft tissues appear unremarkable. IMPRESSION: No acute cardiopulmonary pathology. Dictated by: Errol Quiles M.D. on 05/23/2024 at 15:28 Approved by: Errol Quiles M.D. on 05/23/2024 at 15:28 ECG Data Attestation: I personally reviewed and interpreted this ECG as follows: Interpretation: Sinus rhythm with sinus arrhythmia rate 83 NH 168 QRS of 152 QTC of 531, no acute ST elevation or depression noted. Patient has a right bundle-branch block. MDM Narrative Medical decision making narrative: Labs show a hemoglobin of 11.8 patient's prior was 12.6 in March, patient has a white count of 10, platelets of 298. Sodium is 131 potassium is 4 chloride 90 CO2 is 29 with a BUN 96 creatinine 2.64 improved from priors in March, glucose is 196, calcium 7.3, troponins 0.031 with a BNP of 1770. Chest x-ray shows no acute change EKG shows sinus rhythm with sinus arrhythmia right bundle-branch block. No priors for comparison. Respiratory panel is negative Patient received albuterol 2.5 mg with minimal improvement. After labs and further evaluation received Lasix patient had urine output and feels improved. When patient falls asleep his O2 sat drops but he has known sleep apnea states he does not use his machine but his hypoxia is only when he is asleep. On room air while awake he is 96%. He states he feels improved with his breathing here in the department. Discussed findings from today patient's family feel comfortable this plan state he has had a lot of ups and Downs with his torsemide we will increase his dose with plan for short term follow up and recheck of his renal function in the next week. They state they follow up with Nephrology but primary care is also been pretty amenable to helping monitor his labs. Discussed return precautions all questions answered. Discharge Plan Departure Patient Disposition: Home Clinical Impression: Acute exacerbation of CHF (congestive heart failure) Instructions: DI for Heart Failure Activity Restrictions/Additional Instructions: Please follow-up with your physician and Nephrology team. You appear to have some fluid overload today, please increase your torsemide for the next several days and then return to your usual dose of 100 mg daily. Prescription was sent to [email or web address] in [place]. Take your next dose tomorrow. Please return for new or worsening chest pain, shortness of breath, lightheadedness or passing out, persistent vomiting, increasing swelling in your extremities or other new or concerning changes. Prescriptions: New torsemide 20 mg tablet 20 mg PO DAILY Qty: 5 0RF No Action benzonatate 200 mg capsule 200 mg PO BID PRN (Reason: cough) Qty: 28 0RF atorvastatin 20 mg tablet 20 mg PO DAILY torsemide 100 mg tablet 100 mg PO DAILY Ozempic 2 mg/dose (8 mg/3 mL) pen injector 2 mg SUBCUT QWEEK cholecalciferol (vitamin D3) 1,250 mcg (50,000 unit) capsule 1,250 mcg PO QWEEK hydrocodone-acetaminophen 10-325 mg tablet 1 tab PO Q8H PRN duloxetine 20 mg capsule,delayed release(DR/EC) 20 mg PO BID levothyroxine 25 mcg tablet 25 mcg PO DAILY omeprazole 20 mg tablet,delayed release (DR/EC) 20 mg PO BID insulin glargine 100 unit/mL cartridge 30 unit SUBCUT BID gabapentin 800 mg tablet 600 mg PO TID Patient Comments: Pt takes 3600mg daily Referrals: Augustin Mcnamara MD [Primary Care Provider] - Stand Alone Forms: Patient Portal/API/Survey
[2024-05-23] MEDS: FUROSEMIDE 80 MG in SODIUM CHLORIDE 0.9% 50 ML 116 MG IV (16:05)
[2024-05-23 16:49] LABS: Adenovirus Not Detected (Not Detect); B. parapertussis Not Detected (Not Detecte); Bordetella pertussis Not Detected (Not Detect); Chlamydophila pneumoniae Not Detected (Not Detect); Coronavirus 229E Not Detected (Not Detect); Coronavirus HKU1 Not Detected (Not Detect); Coronavirus NL 63 Not Detected (Not Detect); Coronavirus OC43 Not Detected (Not Detect); Human Metapneumovirus Not Detected (Not Detect); Human Rhinovirus/Enterovirus Not Detected (Not Detect); Influenza A Not Detected (Not Detect); Influenza B Not Detected (Not Detect); Mycoplasma pneumoniae Not Detected (Not Detect); Parainfluenza Virus 1 Not Detected (Not Detect); Parainfluenza Virus 2 Not Detected (Not Detect); Parainfluenza Virus 3 Not Detected (Not Detect); Parainfluenza Virus 4 Not Detected (Not Detect); Respiratory Syncytial Virus Not Detected (Not Detect); SARS- CoV-2 Not Detected (Not Detecte)
== END 2024-05-23 18:39 | disposition home or self-care (01) ==
PROVIDERS: Emergency Provider Emergency Medicine; PCP Family Medicine
DX: I50.9 Heart failure, unspecified (principal); I49.8 Other specified cardiac arrhythmias; I45.10 Unspecified right bundle-branch block; Z79.899 Other long term (current) drug therapy
CPT/HCPCS: 36415; 71045; 80053; 83605; 83880; 84484; 85025; 85610; 87633; 93005; 94640; 96365; 99284; 99285; J1940; J7613

== ENCOUNTER 2024-06-20 08:52 | Emergency (ER) | payer MEDICARE, SELFPAY ==
[2024-06-20 09:19] VITALS: BP 123/75; PULSE 84; RESP 16; TEMP 36.2; O2SAT 93; BMI 43.0
--- NOTE | 2024-06-20 11:13 | DI.RAD.S_ITS ---
PROCEDURE: XR FINGER LT MIN 2V INDICATIONS: left middle finger swelling TECHNIQUE: AP hand, 2 views of the 3rd finger(s) acquired. COMPARISON: None. FINDINGS: Bones: There is volar dislocation at 3rd PIP joint. Overlap of 3rd proximal phalangeal head and neck with 3rd middle phalangeal base is seen. Small calcifications adjacent to dorsal aspect of 3rd PIP joint are seen concerning for acute chip fractures involving 3rd middle phalangeal base. No suspicious bony lesions. Soft tissues: Marked soft tissue swelling surrounding 3rd finger is seen. No suspicious soft tissue calcifications. IMPRESSION: Acute fracture and dislocation involving 3rd PIP joint as above. Dictated by: Errol Quiles M.D. on 06/20/2024 at 11:39 Approved by: Errol Quiles M.D. on 06/20/2024 at 11:44
[2024-06-20] MEDS: LIDOCAINE 2% INJ SDV 5ML 5 ML INJ (11:34)
[2024-06-20 11:55] LABS: Add Manual Diff / Slide Review NO; Basophils Absolute Auto 100 /uL (0-100); Basophils Percent Auto 0.7 % (0-2); Eosinophils Absolute Auto 200 /uL (0-450); Eosinophils Percent Auto 1.7 % (2-4); Hematocrit 34.9 % (41-53); Hemoglobin 11.8 g/dL (13.5-17.5); Lymphocytes Absolute Auto 1200 /uL (1100-4500); Lymphocytes Percent Auto 9.6 % (25-40); Mean Corpuscular HGB Conc 33.8 % (30-36); Mean Corpuscular Hemoglobin 30.5 PG (26-34); Mean Corpuscular Volume 90.2 fL (80-100); Monocytes Absolute Auto 1300 /uL (0-900); Monocytes Percent Auto 10.4 % (3-14); Neutrophils Absolute Auto 9400 /uL (1500-7000); Neutrophils Percent Auto 77.6 % (50-75); Platelet Count 365 X10^3/uL (150-400); Red Blood Cell Count 3.86 X10^6/uL (4.5-5.9); Red Cell Distribution Width 14.2 % (11.6-14.8); White Blood Cell Count 12.1 X10^3/uL (4.5-11.0)
[2024-06-20 12:02] LABS: INR 1.1 (0.9-1.3); Prothrombin Time 12.4 SECONDS (9.4-12.5)
[2024-06-20 12:05] LABS: PTT Partial Thromboplastin Tim 33 SECONDS (25.1-36.5)
[2024-06-20 12:08] LABS: Alanine Aminotransferase 17 IU/L (<50); Albumin 4.3 g/dL (3.5-5.0); Albumin Globulin Ratio 1.1 (1.0-2.8); Alkaline Phosphatase 62 U/L (38-126); Aspartate Aminotransferase 27 IU/L (17-59); Bilirubin Total 0.5 mg/dL (0.2-1.3); Calcium 7.2 mg/dL (8.4-10.2); Carbon Dioxide 35 mmol/L (22-32); Chloride 78 mmol/L (98-107); Estimated Glomerular Filt Rate 22 mL/min (>60); Globulin 3.9 g/dL (1.7-4.1); Glucose 128 mg/dL (70-100); HEMOLYSIS < 15 (0-50); Sodium 127 mmol/L (137-145); Total Protein 8.2 g/dL (6.3-8.2)
[2024-06-20 12:10] LABS: Potassium 2.7 mmol/L (3.4-5.1)
[2024-06-20 12:16] LABS: BUN Creatinine Ratio 36.9 (6-22); Blood Urea Nitrogen 121 mg/dL (9-20)
--- NOTE | 2024-06-20 12:19 | ED_ITS ---
HPI - Skin/Abscess/Foreign Bdy <Kaushal Loera PA-C - Last Filed: 06/20/24 14:13> General Chief complaint: Skin/Abscess/Foreign Body Stated complaint: swollen finger left hand Time Seen by Provider: 06/20/24 11:13 Source: patient Mode of arrival: Wheelchair Limitations: no limitations History of Present Illness HPI narrative: 48-year-old male with past medical history insulin-dependent diabetes, on Ozempic, CKD, hypothyroidism, dyslipidemia, obstructive sleep apnea presents to the ED with a swollen and painful left middle finger. Denies any known trauma. Patient states that he has had this problem for the last 2 weeks. Patient is very somnolent during the encounter. Denies fever, chills, nausea, vomiting, chest pain, shortness of breath, lightheadedness, dizziness, syncope. Denies numbness, tingling, weakness. Related Data Home Medications Medication Instructions Recorded Confirmed atorvastatin 20 mg tablet 20 mg PO DAILY 01/21/24 05/22/24 cholecalciferol (vitamin D3) 1,250 1,250 mcg PO QWEEK 01/21/24 05/22/24 mcg (50,000 unit) capsule duloxetine 20 mg capsule,delayed 20 mg PO BID 01/21/24 05/22/24 release hydrocodone 10 mg-acetaminophen 1 tab PO Q8H PRN 01/21/24 05/22/24 325 mg tablet insulin glargine 100 unit/mL 30 unit SUBCUT BID 01/21/24 05/22/24 subcutaneous cartridge levothyroxine 25 mcg tablet 25 mcg PO DAILY 01/21/24 05/22/24 omeprazole 20 mg tablet,delayed 20 mg PO BID 01/21/24 05/22/24 release semaglutide 2 mg/dose (8 mg/3 mL) 2 mg SUBCUT QWEEK 01/21/24 05/22/24 subcutaneous pen injector (Ozempic) torsemide 100 mg tablet 100 mg PO DAILY 01/21/24 05/22/24 gabapentin 800 mg tablet 600 mg PO TID 05/22/24 05/22/24 Previous Rx's Medication Instructions Recorded benzonatate 200 mg capsule 200 mg PO BID PRN cough #28 caps 05/22/24 torsemide 20 mg tablet 20 mg PO DAILY #5 tabs 05/23/24 Allergies Allergy/AdvReac Type Severity Reaction Status Date / Time cefazolin Allergy Unknown Verified 06/20/24 09:34 Cephalosporins Allergy Unknown Verified 06/20/24 09:34 magnesium sulfate Allergy Unknown Verified 06/20/24 09:34 morphine Allergy Unknown Verified 06/20/24 09:34 nafcillin Allergy Unknown Verified 06/20/24 09:34 oxcarbazepine Allergy Unknown Verified 06/20/24 09:34 pregabalin [From Lyrica] Allergy Unknown Verified 06/20/24 09:34 rifampin Allergy Unknown Verified 06/20/24 09:34 yellow dye Allergy Unknown Verified 06/20/24 09:34 Review of Systems <Kaushal Loera PA-C - Last Filed: 06/20/24 14:13> Constitutional Constitutional: Denies chills, Denies fatigue, Denies fever(s), Denies frequent falls, Denies lethargy and Denies weakness Eyes Eyes: Denies change in vision, Denies eye discharge, Denies irritation and Denies loss of vision ENT Ears, Nose, Mouth, and Throat: Denies change in voice, Denies dizziness, Denies neck pain, Denies sore throat and Denies throat swelling Cardiovascular Cardiovascular: Denies chest pain, Denies irregular heart rhythm, Denies lightheadedness, Denies palpitations, Denies dyspnea, Denies dyspnea on exertion and Denies orthopnea Respiratory Respiratory: Denies cough, Denies dyspnea, Denies dyspnea on exertion and Denies wheezing Gastrointestinal Gastrointestinal: Denies abdominal pain, Denies change in bowel habits, Denies diarrhea, Denies nausea and Denies vomiting Musculoskeletal Musculoskeletal: Denies neck pain and Denies numbness Comments: Left middle finger swelling and pain Integumentary/Breasts Skin/Breast: Denies pruritus, Denies erythema, Denies rash and Denies wounds Neurologic Neurologic: Denies behavioral changes, Denies confusion, Denies dizziness, Denies frequent falls, Denies loss of vision, Denies numbness and Denies weakness Psychiatric Psychiatric: Denies anxiety, Denies behavioral changes, Denies confusion, Denies depression, Denies homicidal ideation and Denies suicidal ideation Endocrine Endocrine: Denies fatigue, Denies flushing and Denies palpitations Hematologic/Lymphatic Hematologic/Lymphatic: Denies easy bruising Allergic/Immunologic Allergic/Immunologic: Denies urticaria, Denies throat swelling and Denies wheezing Patient History <Kaushal Loera PA-C - Last Filed: 06/20/24 14:13> Medical History Erectile dysfunction Tobacco use Nocturia more than twice per night Lower urinary tract symptoms Hx of chronic kidney disease Hx of peripheral neuropathy Hx of thyroid disease Hx of kidney disease Hx of gastroesophageal reflux (GERD) Hx of diabetes mellitus Hx of testicular cancer Surgical History History of orchiectomy History of right below knee amputation Family History Mother Diabetes mellitus Eczema Congestive heart failure Thyroid disorder COPD (chronic obstructive pulmonary disease) Father Diabetes mellitus Social History marital status: number of children: 1 occupational status: disabled Smoking Status: Current every day smoker alcohol intake: never caffeine: Yes Type(s) of exercise: none Smoking Status: Current every day smoker tobacco type: cigarettes alcohol intake frequency: holidays/special occasions only Substance Use Type: does not use Exam <Kaushal Loera PA-C - Last Filed: 06/20/24 14:13> Narrative Exam Narrative: Const General:?cooperative, healthy appearing and comfortable [facility] Head:?normal to inspection Ears:?hearing grossly normal bilaterally Nose:?external nose normal Face and sinus:?normal facial exam and sinuses nontender Mouth:?oral mucosae normal Throat:?posterior oropharynx normal Eyes General:?appearance normal, both eyes and all related structures Neck Neck:?normal visual inspection and no lymphadenopathy noted Resp Effort & Inspection:?normal respiratory effort Auscultation:?clear to auscultation bilaterally Cardio Rate:?regular rate Rhythm:?regular rhythm Musculoskeletal Left middle finger is extremely swollen, stiff, warm to touch, erythematous. Patient is holding the finger with PIP in flexion. No skin injuries noted to the finger. Neurovascularly intact. Neuro General:?patient alert, patient awake and patient oriented x3 Initial Vital Signs Initial Vital Signs: Vital Signs Temperature 97.1 F L 06/20/24 09:19 Pulse Rate 84 06/20/24 09:19 Respiratory Rate 16 06/20/24 09:19 Blood Pressure 123/75 06/20/24 09:19 Pulse Oximetry 93 06/20/24 09:19 Oxygen Delivery Method Room Air 06/20/24 09:19 <Chicho Johnson MD - Last Filed: 06/20/24 18:46> Initial Vital Signs Initial Vital Signs: Vital Signs Temperature 97.1 F L 06/20/24 09:19 Pulse Rate 84 06/20/24 09:19 Respiratory Rate 16 06/20/24 09:19 Blood Pressure 123/75 06/20/24 09:19 Pulse Oximetry 93 06/20/24 09:19 Oxygen Delivery Method Room Air 06/20/24 09:19 Procedures <Kaushal Loera PA-C - Last Filed: 06/20/24 14:13> Orthopedic Joint Reduction Joint #1: Side: left Joint Reduction Location: finger Analgesia: nerve block Local Anesthesia: lidocaine 2% Amount of anesthesic used (mL): 4 Technique used: direct manipulation Post-reduction neuro exam: intact Post-reduction vascular: intact Post Reduction X-Ray Obtained: Yes Post Reduction X-Ray Results: reduced Splint Applied: Yes Patient Tolerated Procedure: Well Course <Kaushal Loera PA-C - Last Filed: 06/20/24 14:13> Orders Ordered: ED Orders 06/20/24 11:13 XR finger LT min 2V Stat 06/20/24 11:40 CBC Auto Diff [Complete Blood Count AUTO DIFF] Stat CMP [Comprehensive Metabolic Panel] Stat Lactate (Lactic Acid) Stat Magnesium Stat PT [Prothrombin Time INR] Stat PTT [PTT Partial Thromboplastin Semaj] Stat 06/20/24 12:12 EKG-12 Lead Stat 06/20/24 12:38 XR finger LT min 2V Stat Discontinued Medications Calcium Gluconate 4.65 meq/ (Sodium Chloride) 60 mls @ 180 mls/hr IV NOW ONE Stop: 06/20/24 13:27 Last Infusion: 06/20/24 13:57 Dose: Infused Documented By: Admin: 06/20/24 13:31 Dose: 180 mls/hr Documented By: DEVORA Lidocaine HCl (Lidocaine 2% Inj Sdv 5ml) 5 ml INJ INTRA-OP ONE Stop: 06/20/24 11:28 Last Admin: 06/20/24 11:34 Dose: 5 ml Documented By: Magnesium Oxide (Magnesium Oxide 400 Mg Tablet) 400 mg PO NOW ONE Stop: 06/20/24 13:10 Last Admin: 06/20/24 13:31 Dose: 400 mg Documented By: DEVORA Potassium Chloride (Potassium Chloride 20 Meq/15 Ml Udc) 40 meq PO NOW ONE Stop: 06/20/24 12:14 Last Admin: 06/20/24 12:47 Dose: 40 meq Documented By: AB Vital Signs Vital signs: Vital Signs - 8 hr 06/20/24 12:58 06/20/24 12:59 06/20/24 12:59 Pulse Rate 81 80 Respiratory Rate 17 23 Blood Pressure 144/91 H Pulse Oximetry 93 93 06/20/24 13:00 06/20/24 13:00 Pulse Rate 79 Respiratory Rate 14 Blood Pressure 154/93 H Pulse Oximetry 96 <Chicho Johnson MD - Last Filed: 06/20/24 18:46> Orders Ordered: ED Orders 06/20/24 11:13 XR finger LT min 2V Stat 06/20/24 11:40 CBC Auto Diff [Complete Blood Count AUTO DIFF] Stat CMP [Comprehensive Metabolic Panel] Stat Lactate (Lactic Acid) Stat Magnesium Stat PT [Prothrombin Time INR] Stat PTT [PTT Partial Thromboplastin Semaj] Stat 06/20/24 12:12 EKG-12 Lead Stat 06/20/24 12:38 XR finger LT min 2V Stat Discontinued Medications Calcium Gluconate 4.65 meq/ (Sodium Chloride) 60 mls @ 180 mls/hr IV NOW ONE Stop: 06/20/24 13:27 Last Infusion: 06/20/24 13:57 Dose: Infused Documented By: Admin: 06/20/24 13:31 Dose: 180 mls/hr Documented By: DEVORA Lidocaine HCl (Lidocaine 2% Inj Sdv 5ml) 5 ml INJ INTRA-OP ONE Stop: 06/20/24 11:28 Last Admin: 06/20/24 11:34 Dose: 5 ml Documented By: Magnesium Oxide (Magnesium Oxide 400 Mg Tablet) 400 mg PO NOW ONE Stop: 06/20/24 13:10 Last Admin: 06/20/24 13:31 Dose: 400 mg Documented By: DEVORA Potassium Chloride (Potassium Chloride 20 Meq/15 Ml Udc) 40 meq PO NOW ONE Stop: 06/20/24 12:14 Last Admin: 06/20/24 12:47 Dose: 40 meq Documented By: AB Vital Signs Vital signs: Vital Signs - 8 hr 06/20/24 12:58 06/20/24 12:59 06/20/24 12:59 Pulse Rate 81 80 Respiratory Rate 17 23 Blood Pressure 144/91 H Pulse Oximetry 93 93 06/20/24 13:00 06/20/24 13:00 Pulse Rate 79 Respiratory Rate 14 Blood Pressure 154/93 H Pulse Oximetry 96 MDM - Skin/Abscess/Foreign Bdy <Kaushal Loera PA-C - Last Filed: 06/20/24 14:13> Lab Data 06/20/24 11:40 06/20/24 11:40 Labs: Lab Results 06/20/24 Range/Units 11:40 WBC 12.1 H (4.5-11.0) X10^3/uL RBC 3.86 L (4.5-5.9) X10^6/uL Hgb 11.8 L (13.5-17.5) g/dL Hct 34.9 L (41-53) % MCV 90.2 (80-100) fL MCH 30.5 (26-34) PG MCHC 33.8 (30-36) % RDW 14.2 (11.6-14.8) % Plt Count 365 (150-400) X10^3/uL Neut % (Auto) 77.6 H (50-75) % Lymph % (Auto) 9.6 L (25-40) % [place] % (Auto) 10.4 (3-14) % Eos % (Auto) 1.7 L (2-4) % Baso % (Auto) 0.7 (0-2) % Neut # (Auto) 9400 H (8786-0019) /uL Lymph # (Auto) 1200 (7253-6166) /uL [place] # (Auto) 1300 H (0-900) /uL Eos # (Auto) 200 (0-450) /uL Baso # (Auto) 100 (0-100) /uL PT 12.4 (9.4-12.5) SECONDS INR 1.1 (0.9-1.3) APTT 33 (25.1-36.5) SECONDS Sodium 127 L (137-145) mmol/L Potassium 2.7 L* (3.4-5.1) mmol/L Chloride 78 L (98-107) mmol/L Carbon Dioxide 35 H (22-32) mmol/L BUN 121 H* (9-20) mg/dL Creatinine 3.28 H (0.66-1.25) mg/dL Estimated GFR 22 L (>60) mL/min BUN/Creatinine Ratio 36.9 H (6-22) Glucose 128 H (70-100) mg/dL Lactate 1.0 (0.7-2.1) mmol/L Calcium 7.2 L (8.4-10.2) mg/dL Magnesium 1.4 L (1.6-2.3) mg/dL Total Bilirubin 0.5 (0.2-1.3) mg/dL AST 27 (17-59) IU/L ALT 17 (<50) IU/L Alkaline Phosphatase 62 (38-126) U/L Total Protein 8.2 (6.3-8.2) g/dL Albumin 4.3 (3.5-5.0) g/dL Globulin 3.9 (1.7-4.1) g/dL Albumin/Globulin Ratio 1.1 (1.0-2.8) MDM Narrative Medical decision making narrative: 48-year-old male with past medical history insulin-dependent diabetes, on Ozempic, CKD, hypothyroidism, dyslipidemia, obstructive sleep apnea presents to the ED with a swollen and painful left middle finger. Concern for cellulitis versus sepsis versus abscess versus fracture/dislocation versus other. Finger x-ray was obtained which shows a volar dislocation at the 3rd PIP joint. Overlap of 3rd proximal phalangeal head and neck with 3rd middle phalangeal base is seen. Small calcifications adjacent to the dorsal aspect of 3rd PIP joint are seen concerning for acute chip fractures involving 3rd middle phalangeal base. Marked soft tissue swelling surrounding the 3rd finger is seen. Labs were obtained which were significant for multiple electrolyte derangements. Potassium is low at 2.7, magnesium low at 1.4, calcium low at 7.2. Creatinine has increased from the last baseline to 3.28. GFR is at 22. BUN is 120. Patient has CKD at baseline, however kidney function has worsened per today's labs. An EKG was obtained which shows some T-wave depression in lead 2, QT/QTC at 464/522. Patient denies chest pain or shortness of breath. Patient's left middle finger was numbed with a digital block, finger was reduced and splint applied. Postreduction x-ray was obtained which shows interval reduction of the 3rd PIP dislocation, with anatomic 3rd finger alignment. Electrolytes repleted with potassium, calcium, magnesium. Hospitalist Dr. Wall was consulted for admission. He graciously accepts the patient. Discussed findings, plan and disposition with patient. Patient's just recently had a surgery, needs patient has help at home, patient is debating if he will be able to stay overnight. You would like to think it over over the next few minutes. Patient elects to leave Against Medical Advice and return home due to his commitments at home. Risks of leaving without continued care including cardiac arrest and discussed with patient. Patient verbalized understanding. Patient agrees to return to the ED if he has worsening symptoms. Medical records reviewed: Yes <Chicho Johnson MD - Last Filed: 06/20/24 18:46> Lab Data Labs: Lab Results 06/20/24 Range/Units 11:40 WBC 12.1 H (4.5-11.0) X10^3/uL RBC 3.86 L (4.5-5.9) X10^6/uL Hgb 11.8 L (13.5-17.5) g/dL Hct 34.9 L (41-53) % MCV 90.2 (80-100) fL MCH 30.5 (26-34) PG MCHC 33.8 (30-36) % RDW 14.2 (11.6-14.8) % Plt Count 365 (150-400) X10^3/uL Neut % (Auto) 77.6 H (50-75) % Lymph % (Auto) 9.6 L (25-40) % [place] % (Auto) 10.4 (3-14) % Eos % (Auto) 1.7 L (2-4) % Baso % (Auto) 0.7 (0-2) % Neut # (Auto) 9400 H (2547-9427) /uL Lymph # (Auto) 1200 (3232-6704) /uL [place] # (Auto) 1300 H (0-900) /uL Eos # (Auto) 200 (0-450) /uL Baso # (Auto) 100 (0-100) /uL PT 12.4 (9.4-12.5) SECONDS INR 1.1 (0.9-1.3) APTT 33 (25.1-36.5) SECONDS Sodium 127 L (137-145) mmol/L Potassium 2.7 L* (3.4-5.1) mmol/L Chloride 78 L (98-107) mmol/L Carbon Dioxide 35 H (22-32) mmol/L BUN 121 H* (9-20) mg/dL Creatinine 3.28 H (0.66-1.25) mg/dL Estimated GFR 22 L (>60) mL/min BUN/Creatinine Ratio 36.9 H (6-22) Glucose 128 H (70-100) mg/dL Lactate 1.0 (0.7-2.1) mmol/L Calcium 7.2 L (8.4-10.2) mg/dL Magnesium 1.4 L (1.6-2.3) mg/dL Total Bilirubin 0.5 (0.2-1.3) mg/dL AST 27 (17-59) IU/L ALT 17 (<50) IU/L Alkaline Phosphatase 62 (38-126) U/L Total Protein 8.2 (6.3-8.2) g/dL Albumin 4.3 (3.5-5.0) g/dL Globulin 3.9 (1.7-4.1) g/dL Albumin/Globulin Ratio 1.1 (1.0-2.8) Discharge Plan Departure Patient Disposition: Left Against Medical Advice Clinical Impression: Electrolyte abnormality Finger fracture, left Qualifiers: Encounter type: initial encounter Finger: middle finger Fracture type: closed P halanx: middle Fracture alignment: displaced Qualified Code(s): S62.623A - Displaced fracture of middle phalanx of left middle finger, initial encounter for closed fracture Activity Restrictions/Additional Instructions: You were evaluated in the ED today for a swollen and painful left middle finger. You had a fracture and dislocation, which was reduced and x-rayed again. The repeat x-ray does show that your finger dislocation has been fixed. You have been fitted with a splint, which you need to keep on for the next few weeks to prevent the dislocation from reoccurring. Your labs today revealed multiple electrolyte abnormalities including low magnesium, calcium, potassium. Your EKG also did show some corresponding changes. Your kidney function has also declined from your prior numbers. The electrolyte abnormalities puts you at a great risk for heart problems including cardiac arrest and . You were given a 1st dose of potassium, calcium, magnesium. We recommend that you be admitted overnight, have continued electrolyte replenishment, repeated EKGs to ensure your safety. However, you are electing to go home today against medical advice, since you have some commitments at home that you can not defer. Please continue to monitor your symptoms closely, return to the ED if you experience any worsening symptoms, chest pain, shortness of breath. Please also follow-up with a ortho specialist monitor that your finger is healing appropriately. Prescriptions: No Action benzonatate 200 mg capsule 200 mg PO BID PRN (Reason: cough) Qty: 28 0RF torsemide 20 mg tablet 20 mg PO DAILY Qty: 5 0RF atorvastatin 20 mg tablet 20 mg PO DAILY torsemide 100 mg tablet 100 mg PO DAILY Ozempic 2 mg/dose (8 mg/3 mL) pen injector 2 mg SUBCUT QWEEK cholecalciferol (vitamin D3) 1,250 mcg (50,000 unit) capsule 1,250 mcg PO QWEEK hydrocodone-acetaminophen 10-325 mg tablet 1 tab PO Q8H PRN duloxetine 20 mg capsule,delayed release(DR/EC) 20 mg PO BID levothyroxine 25 mcg tablet 25 mcg PO DAILY omeprazole 20 mg tablet,delayed release (DR/EC) 20 mg PO BID insulin glargine 100 unit/mL cartridge 30 unit SUBCUT BID gabapentin 800 mg tablet 600 mg PO TID Patient Comments: Pt takes 3600mg daily Referrals: Augustin Mcnamara MD [Primary Care Provider] - Stand Alone Forms: Patient Portal/API, Against Medical Advice ED Sign-out <Chicho Johnson MD - Last Filed: 06/20/24 18:46> Cosign ED Attending Sammy Attestation: I was immediately available in the department for consultation. This documentation has been reviewed and I agree with assessment and plan. Supervised by Chicho Johnson MD
[2024-06-20 12:29] LABS: Magnesium 1.4 mg/dL (1.6-2.3)
--- NOTE | 2024-06-20 12:38 | DI.RAD.S_ITS ---
PROCEDURE: XR FINGER LT MIN 2V INDICATIONS: post reduction TECHNIQUE: AP hand, 2 views of the 3rd finger(s) acquired. COMPARISON: [facility], CR, XR FINGER LT MIN 2V, 06/20/2024, 11:13. FINDINGS: Bones: There is interval reduction of earlier noted volar dislocation at 3rd PIP joint. 3rd digit alignment is now anatomic. Cortical irregularity involving dorsal aspect of 3rd middle phalangeal base with posteriorly displaced fractured fragment is seen. No other fracture or dislocation. No suspicious bony lesions. Soft tissues: No suspicious soft tissue calcifications. IMPRESSION: Interval reduction of earlier noted 3rd PIP joint dislocation with now anatomic 3rd finger alignment. Displaced fracture involving dorsal aspect of 3rd middle phalangeal base. Dictated by: Errol Quiles M.D. on 06/20/2024 at 12:59 Approved by: Errol Quiles M.D. on 06/20/2024 at 13:00
--- NOTE | 2024-06-20 12:41 | EKG_ITS ---
[address] [address] Test Date: 2024-06-20 Pat Name: Lucas Alejandro Department: Room: Gender: Male [employer]: : 1975 Requested By: Order Number: [id number] Reading MD: Jarocho Wall Measurements Intervals [place] Rate: 76 P: 42 IL: 174 QRS: -28 QRSD: 160 T: 61 QT: 464 QTc: 522 Interpretive Statements Normal sinus rhythm Right bundle branch block Electronically Signed On 06-21-2024 14:09:10 PST by Jarocho Wall
[2024-06-20] MEDS: POTASSIUM CHLORIDE 20 MEQ/15 ML UDC 40 MEQ PO (12:47)
[2024-06-20 12:58] VITALS: PULSE 81; RESP 17; O2SAT 93
[2024-06-20 12:59] VITALS: BP 144/91; PULSE 80; RESP 23; O2SAT 93
[2024-06-20 13:00] VITALS: BP 154/93; PULSE 79; RESP 14; O2SAT 96
--- NOTE | 2024-06-20 13:04 | PC.NURSE ---
Assumed care of pt at 1300. Pt a&ox4. Denies pain.
[2024-06-20] MEDS: CALCIUM GLUCONATE 4.65 MEQ in SODIUM CHLORIDE 0.9% 50 ML 180 MEQ IV (13:31)
[2024-06-20] MEDS: MAGNESIUM OXIDE 400 MG TABLET PO (13:31)
== END 2024-06-20 14:17 | disposition left against medical advice (07) ==
LOC: ED 11:13 → AC 13:34 → ED 14:02
PROVIDERS: Emergency Provider Student in an Organized Health Care Education/Training Program; PCP Family Medicine; Referring Provider Student in an Organized Health Care Education/Training Program
DX: S62.623A Displaced fracture of middle phalanx of left middle finger, initial encounter for closed fracture (principal); E87.8 Other disorders of electrolyte and fluid balance, not elsewhere classified
CPT/HCPCS: 26725; 36415; 73140; 80053; 83605; 83735; 85025; 85610; 85730; 93005; 96365; 99284; J0612

== ENCOUNTER → 2024-08-20 15:44 | Outpatient (CLI) | payer MEDICARE, SELFPAY ==
--- NOTE | 2024-08-20 15:47 | DI.MRI.S_ITS ---
PROCEDURE: MR HAND LT WO/W CON INDICATIONS: r/o osteomyelitis TECHNIQUE: Noncontrast coronal T1 spin echo and STIR, sagittal T1 spin echo with fat saturation and STIR, axial T1 spin echo and T2 fast spin echo with fat saturation. After the administration of contrast, axial/sagittal/coronal T1 spin echo with fat saturation through the left hand . COMPARISON: [facility], CR, XR FINGER(S) LEFT, 08/03/2024, 13:06. [facility], CR, XR FINGER LT MIN 2V, 06/20/2024, 12:42. [facility], CR, XR FINGER LT MIN 2V, 06/20/2024, 11:13. [facility], CR, XR HAND 3+ VIEWS BILATERAL, 07/02/2017, 14:53. [facility], CR, XR HAND 3VW LT, 04/16/2017, 11:30. [facility], CR, XR HAND 3VW LT, 04/06/2017, 12:19. FINDINGS: Image quality: Excellent. Enhancement: There is no enhancing fluid collection. Bone: There is marrow replacement with corresponding edema and enhancement in the shaft/base of the 3rd digit middle phalanx and head/shaft of the proximal phalanx (9/16). Periosteal reaction is present around the affected proximal and middle phalangeal segments (/). There is also volar dislocation of the 3rd digit at the PIP joint (/). Subchondral cyst formation is present at the ulnar aspects of the lunate and triquetrum (5/12) as well as the volar cortex of the capitate (5/11). There is a chronic, healed fracture of the 5th metacarpal neck (5/14; 9/7). There is no other pathologic fracture or dislocation. Joint: The X joint is preserved. There is no significant X joint effusion. Muscle: Overall muscle bulk is preserved without abnormal edema or enhancement. Tendon: There is a small amount of enhancing circumferential fluid in the 3rd digit flexor digitorum tendon sheath (6/34) at the level of the metacarpal shaft (4/12). There is disruption of the distal extensor tendon slips as answered on T the base of the 3rd digit distal phalanx (8/17; 01/16-). The visualized flexor and extensor tendons are otherwise within normal limits. Other: Circumferential edema is present around the 3rd digit at the site of the fracture-dislocation. IMPRESSION: 1. Osteomyelitis of the 3rd digit at the proximal and middle phalanges with a concurrent fracture-dislocation , aggressive periosteal reaction, and local cellulitis. No drainable abscess. 2. Mild circumferential fluid around the 3rd digit flexor digitorum tendon sheath, which may be reactive to the fracture-dislocation rather than active tenosynovitis. 3. Mild osteoarthritis involving the carpal rows. Dictated by: Mohamud Hamm M.D. on 08/21/2024 at 14:43 Approved by: Mohamud Hamm M.D. on 08/21/2024 at 14:58
== END ==
PROVIDERS: PCP Family Medicine; Referring Provider Physician Assistant; Visit Provider Physician Assistant
DX: S63.28 Dislocation of proximal interphalangeal joint of finger (principal); M86.8X4 Other osteomyelitis, hand; M19.042 Primary osteoarthritis, left hand
CPT/HCPCS: 73220; A9579